=== PATIENT | female | born 1985 | race Caucasian/White ===

== ENCOUNTER 2016-07-23 13:04 | Emergency (ER) | payer OTHER ==
[2016-07-23 13:34] LABS: URINE BILIRUBIN 3+ (NEGATIVE); URINE BLOOD 2+ (NEGATIVE); URINE GLUCOSE (UA) NORMAL (NORMAL); URINE KETONE NEGATIVE (NEGATIVE); URINE LEUKOCYTE ESTERASE 2+ (NEGATIVE); URINE NITRATE POSITIVE (NEGATIVE); URINE PROTEIN 2+ (NEGATIVE)
[2016-07-23 13:45] LABS: URINE BACTERIA 1+ (NONE SEEN); URINE RBC 0-5 /[HPF] (0-2); URINE SQUAMOUS EPITHELIAL CELL 0-10 /[HPF] (NONE SEEN); URINE WBC >15 /[HPF] (0-5)
[2016-07-23 16:06] LABS: BASO # 0.1 10_X3_uL (0.0-0.1); BASO % 0.5 % (0.1-1.2); EOS % 0.3 % (0.7-5.8); GRAN # 9.3 10_X3_uL (1.6-6.1); GRAN % 85.4 % (34.0-71.1); HEMATOCRIT 43.2 % (34-45); HEMOGLOBIN 15.7 g/dL (11.2-15.7); LYMPH # 0.8 10_X3_uL (1.2-3.7); LYMPH % 7.4 % (19.3-51.7); MEAN CORPUSCULAR HEMOGLOBIN 37.9 pg (27.0-33.0); MEAN CORPUSCULAR HGB CONC 36.3 g/dL (32.0-36.0); MEAN CORPUSCULAR VOLUME 104.3 fL (79-95); MEAN PLATELET VOLUME 8.9 fl (7.5-11.5); MONO # 0.7 10_X3_uL (0.2-0.9); MONO % 6.4 % (4.7-12.5); PLATELET COUNT 236 x10_3/uL (182-369); RED BLOOD COUNT 4.14 x10_6/uL (3.9-5.2); RED CELL DISTRIBUTION WIDTH 12.7 % (11.7-14.4); WHITE BLOOD COUNT 10.9 x10_3/uL (4.0-10.0)
== END 2016-07-23 18:05 | disposition home or self-care (01) ==
LOC: ER 13:04
PROVIDERS: Family Medicine
DX: N12 Tubulo-interstitial nephritis, not specified as acute or chronic (principal); R11.0 Nausea; Z98.890 Other specified postprocedural states; R10.9 Unspecified abdominal pain; M54.5 Low back pain; Z79.899 Other long term (current) drug therapy
CPT/HCPCS: 36415; 81001; 85025; 87086; 87186; 96365; 96366; 99070; 99283-25